=== PATIENT | male | born 1960 | race Caucasian/White ===

== ENCOUNTER 2018-10-17 10:19 | Emergency (ER) | payer SELFPAY ==
[~2018-10-17] VITALS: Ht 177.8 cm; Wt 94.3 kg
[2018-10-17 10:24] VITALS: BP 175/96
[2018-10-17] MEDS ORDERED: KETOROLAC 30 MG/1 ML ONE (10:59)
[2018-10-17] MEDS ORDERED: DIAZEPAM 5 MG TABLET ONE (10:59)
[2018-10-17] MEDS ORDERED: KETOROLAC 30 MG/1 ML IM ONE (11:30)
[2018-10-17] MEDS ORDERED: DIAZEPAM 5 MG TABLET PO ONE (11:30)
== END 2018-10-17 12:40 | disposition home or self-care (01) ==
LOC: ED 12:30
DX: S16.1XXA Strain of muscle, fascia and tendon at neck level, initial encounter (principal); X58.XXXA Exposure to other specified factors, initial encounter; Y93.89 Activity, other specified; Y92.89 Other specified places as the place of occurrence of the external cause; Y99.8 Other external cause status
CPT/HCPCS: 72050; 93005; 96372; 99283; J1885